=== PATIENT | female | born 1990 | race American Indian/Alaskan Native ===

== ENCOUNTER 2019-09-23 19:10 | Emergency (ER) | payer SELFPAY ==
[2019-09-23 19:17] VITALS: BP 155/95
[2019-09-23 19:59] LABS: Bacteria,Urine 2+ /HPF (Negative); Bilirubin,Urine NEG (Negative); Blood,Urine LG (Negative); Color,Urine Amber (Yellow); Mucus,Urine 3+ /HPF; Urobilinogen,Urine < 2.0 mg/dL (<2.0)
--- NOTE | 2019-09-23 20:30 | Emergency Department Report ---
ED HPI - General Chief complaint: Vaginal Bleeding Stated complaint: VAGINAL BLEEDING (10 WKS) Time Seen by Provider: 09/23/19 19:57 Source: patient Mode of arrival: Ambulatory Limitations: No Limitations - History of Present Illness Initial comments: This is a 29-year-old female nontoxic, well nourished in appearance, no acute signs of distress presents to the ED with c/o of vaginal bleeding and pelvic pain x1 day. Patient stated is about 10 weeks . Stated has went with 1 pad in 24 hours. Has OBGYN that she follows with a normal US . Patient denies any vaginal discharge or foul odor. Patient denies any nausea, vomiting, chest pain, shortness of breathe, fever, chills, headache, stiff neck, numbness, tingling. Patient denies any urinary symptoms. Patient denies any allergies or PMH. MD Complaint: vaginal bleeding, other (Pelvic pain) -: days(s) (1) Location: pelvis Radiation: none Severity: mild Severity scale (0 -10): 8 Quality: cramping, aching Consistency: intermittent Improves with: none Worsens with: none Associated symptoms: vaginal bleeding. denies: nausea/vomiting, vaginal discharge, abdominal pain, dysuria, headache, vision changes, malaise, dysparuenia, rash, seizure, shortness of breath, syncope, weakness Vaginal bleeding: light :: Yes Number of weeks : 10 Pre-juliet care: followed by OB - Related Data Allergies Allergy/AdvReac Type Severity Reaction Status Date / Time No Known Allergies Allergy Unverified 09/23/19 19:17 ED Review of Systems ROS: Stated complaint: VAGINAL BLEEDING (10 WKS) Other details as noted in HPI Constitutional: denies: chills, fever Eyes: denies: eye pain, eye discharge, vision change ENT: denies: ear pain, throat pain Respiratory: denies: cough, shortness of breath, wheezing Cardiovascular: denies: chest pain, palpitations Endocrine: no symptoms reported Gastrointestinal: denies: abdominal pain, nausea, diarrhea Genitourinary: abnormal menses. denies: urgency, dysuria, discharge Musculoskeletal: denies: back pain, joint swelling, arthralgia Skin: denies: rash, lesions Neurological: denies: headache, weakness, paresthesias Psychiatric: denies: anxiety, depression Hematological/Lymphatic: denies: easy bleeding, easy bruising ED Past Medical Hx - Past Medical History Previous Medical History?: No - Surgical History Past Surgical History?: No - Social History Smoking Status: Never Smoker Substance Use Type: None ED Physical Exam - General Limitations: No Limitations General appearance: alert, in no apparent distress - Head Head exam: Present: atraumatic, normocephalic - Neck Neck exam: Present: normal inspection, full ROM - GI/Abdominal GI/Abdominal exam: Present: soft, normal bowel sounds. Absent: distended, tenderness, guarding, rebound, rigid, diminished bowel sounds - Extremities Exam Extremities exam: Present: normal inspection, full ROM - Back Exam Back exam: Present: normal inspection, full ROM - Neurological Exam Neurological exam: Present: alert, oriented X3, normal gait - Psychiatric Psychiatric exam: Present: normal affect, normal mood - Skin Skin exam: Present: warm, dry, intact, normal color. Absent: rash ED Course Vital Signs 09/23/19 19:12 Temperature 97.8 F Pulse Rate 107 H Respiratory 18 Rate Blood Pressure 155/95 Blood Pressure 155/95 [Right] O2 Sat by Pulse 100 Oximetry - Reevaluation(s) Reevaluation #1: 09/23/19 20:29 Patient is speaking in full sentences with no signs of distress noted. ED Medical Decision Making - Lab Data Result diagrams: 09/23/19 19:50 - Medical Decision Making This is a 29-year-old female presents with threatened miscarriage. Patient is stable and was examined by me. Normal abdominal exam. US OB obtained and dictated by the radiologist. Ua obtained. Quantative serum test obtained. Patient notified of the US report with no questions noted by the patient. Patient was instructed f/u with [facility] in 3-5 days. RH factor positive. Labs within normal limits. At time of discharge, the patient does not seem toxic or ill in appearance. No acute signs of distress noted. Patient agrees to discharge treatment plan of care. No further questions noted by the patient. Critical care attestation.: If time is entered above; I have spent that time in minutes in the direct care o f this critically ill patient, excluding procedure time. ED Disposition Clinical Impression: Threatened miscarriage Disposition: DC-01 TO HOME OR SELFCARE Is pt being admited?: No Does the pt Need Aspirin: No Condition: Stable Instructions: Threatened Miscarriage (ED) Additional Instructions: Follow-up with a [facility] doctor in 3-5 days or if symptoms worsen and continue return to emergency room as soon as possible. Referrals: PRIMARY CARE, [Primary Care Provider] - 3-5 Days EDVIN RACHEL MD [Staff Physician] - 3-5 Days [facility] [Provider Group] - 3-5 Days Forms: Work/School Release Form(ED)
[2019-09-23 20:37] LABS: Basophils # (Auto) 0.1 K/mm3 (0.0-0.1); Eosinophils # (Auto) 0.1 K/mm3 (0.0-0.4); Eosinophils % (Auto) 0.8 % (0.0-4.3); Hematocrit 39.4 % (30.3-42.9); Hemoglobin 12.9 gm/dl (10.1-14.3); Lymphocytes # (Auto) 3.5 K/mm3 (1.2-5.4); Mean Corpuscular HGB Conc 33 % (30-34); Mean Corpuscular Volume 98 fl (79-97); Monocytes # (Auto) 1.2 K/mm3 (0.0-0.8); Monocytes % (Auto) 9.1 % (0.0-7.3); Platelet Count 354 K/mm3 (140-440); Red Blood Count 4.03 M/mm3 (3.65-5.03); Red Cell Distribution Width 13.4 % (13.2-15.2)
--- NOTE | 2019-09-23 21:22 | Ultrasound Report ---
US OB <= 14 weeks fetus INDICATION / CLINICAL INFORMATION: vaginal bleeding. COMPARISON: None available. FINDINGS: A single viable intrauterine gestation is demonstrated. The crown-rump length is 3.2 cm corresponding to a 10 week gestation. cardiac activity was observed with a heart rate of 166 bpm. The ovaries are normal. No free fluid collections are seen in the pelvis. IMPRESSION: 1. Viable single 20 week intrauterine gestation. Signer Name: Tony Randle MD Signed: 09/23/2019 9:17 PM Workstation Name: [id number]
== END 2019-09-23 22:58 | disposition home or self-care (01) ==
LOC: ED 19:10
DX: O20.0 Threatened abortion (principal); Z3A.10 10 weeks gestation of pregnancy
CPT/HCPCS: 36415; 76801; 81001; 84702; 84703; 85025; 86900; 86901; 87086; 99283